=== PATIENT | male | born 1965 | race Caucasian/White ===

== ENCOUNTER 2018-05-21 13:30 | Emergency (ER) | payer OTHER ==
[~2018-05-21] VITALS: Ht 177.8 cm; Wt 90.7 kg
[2018-05-21] MEDS ORDERED: ZIAC 10-6.25 M1 EACH PO (13:47)
[2018-05-21] MEDS ORDERED: NABUMETONE 750750 M1 PO (15:29)
[2018-05-21] MEDS ORDERED: ROBAXIN 750 MG750 M1 PO (15:29)
[2018-05-21 15:46] VITALS: BP 120/84
== END 2018-05-21 15:47 | disposition home or self-care (01) ==
LOC: M.ERS 13:30
DX: S16.1XXA Strain of muscle, fascia and tendon at neck level, initial encounter (principal); S39.012A Strain of muscle, fascia and tendon of lower back, initial encounter; I10 Essential (primary) hypertension; Z87.442 Personal history of urinary calculi; V49.49XA Driver injured in collision with other motor vehicles in traffic accident, initial encounter; Y93.89 Activity, other specified; Y92.89 Other specified places as the place of occurrence of the external cause; Y99.8 Other external cause status